=== PATIENT | female | born 2000 | race Caucasian/White ===

== ENCOUNTER 2022-02-19 21:25 | Emergency (ER) | payer SELFPAY ==
[~2022-02-19] VITALS: Ht 157.5 cm; Wt 58.5 kg
--- NOTE | 2022-02-19 21:30 | NUR ---
Pt bib [id number] from a restaurant c/o syncope, Pt smoked marijuana earlier, then went to dinner with family at restaurant, stepped out for fresh air, and had a syncopal episode, hit face on wall on the way down.
--- NOTE | 2022-02-19 21:43 | NUR ---
Dr. Gastelum on bedside for MSE.
[2022-02-19] MEDS ORDERED: IV NORMAL SALINE 1000 ML BAG IV ONE (22:00)
[2022-02-19 22:01] LABS: HEMATOCRIT 34.1 % (31.2-41.9); MEAN CORPUSCULAR HEMOGLOBIN 31.7 uug (24.7-32.8); PLATELET COUNT (AUTO) 289 K/uL (179-408)
[2022-02-19 22:11] LABS: CARBON DIOXIDE 25 mmol/L (21-32); CHLORIDE 106 mmol/L (98-107); GLUCOSE 119 mg/dL (74-106); UREA NITROGEN, BLOOD 15 mg/dL (7-18)
[2022-02-19 22:13] LABS: POTASSIUM 2.8 mmol/L (3.5-5.1)
[2022-02-19] MEDS ORDERED: POTASSIUM BICARBONATE/CIT AC 25 MEQ TABLET.EFF PO ONE (22:15)
[2022-02-19] MEDS ORDERED: MAGNESIUM SULFATE/D5W 400 ML ONE (22:17)
[2022-02-19] MEDS ORDERED: POTASSIUM BICARBONATE/CIT AC 25 MEQ TABLET.EFF ONE (22:19)
[2022-02-19] MEDS: MAGNESIUM SULFATE/D5W 100 ML IV SCH ×2 (22:27→23:10)
--- NOTE | 2022-02-19 23:11 | NUR ---
Dr. Gastelum at bedside.
[2022-02-19] MEDS ORDERED: IV NS 1000 ML 1,000 ML IV ONE (23:15)
[2022-02-20] MEDS: MAGNESIUM SULFATE/D5W 100 ML IV SCH ×2 (00:08→01:06)
[2022-02-20] MEDS ORDERED: POTASSIUM BICARBONATE/CIT AC 25 MEQ TABLET.EFF ONE (00:19)
[2022-02-20] MEDS ORDERED: POTASSIUM BICARBONATE/CIT AC 25 MEQ TABLET.EFF PO ONE (00:30)
--- NOTE | 2022-02-20 01:06 | NUR ---
Dr. Gastelum at bedside.
[2022-02-20] MEDS ORDERED: OXYCODONE/APAP 5-325 MG TABLET ONE (01:18)
[2022-02-20] MEDS ORDERED: OXYCODONE/APAP 5-325 MG TABLET PO ONE (01:30)
--- NOTE | 2022-02-20 01:40 | NUR ---
Patient discharged to home in stable condition. Written and verbal after care instructions given. Patient verbalizes understanding of instructions. Stressed follow up or return to ER for worsening s/s. Patient ambulated from the ER with steady gait. All belongings with patient.
[2022-02-20 01:49] VITALS: BP 105/64
== END 2022-02-20 01:40 | disposition home or self-care (01) ==
LOC: ER 21:27
DX: R55 Syncope and collapse (principal); E87.6 Hypokalemia; E83.42 Hypomagnesemia
CPT/HCPCS: 36415; 80048; 83735; 84484; 85025; 93005; 96361; 96365; 96366 ×2; 99285; J3475; J7040 ×2; A4663